=== PATIENT | female | born 1965 | race Caucasian/White ===

== ENCOUNTER → 2016-11-05 | Outpatient (CLI) | payer OTHER ==
[~2016-11-05] VITALS: Ht 156.2 cm; Wt 86.2 kg
[~2016-11-05] MED LIST: CELEXA20 MG PO
== END | disposition home or self-care (01) ==
LOC: AMB 07:56
PROC: 0DBE8ZZ Excision of Large Intestine, Via Natural or Artificial Opening Endoscopic (ICD-10-PCS; principal; 2016-11-05)
DX: Z12.11 Encounter for screening for malignant neoplasm of colon (principal); D12.5 Benign neoplasm of sigmoid colon; K64.8 Other hemorrhoids; E78.5 Hyperlipidemia, unspecified; R73.09 Other abnormal glucose
CPT/HCPCS: 88305; J2250; J3010